=== PATIENT | male | born 1980 | race Caucasian/White ===

== ENCOUNTER 2025-03-06 15:29 | Outpatient (CLI) | payer BC, SELFPAY ==
--- NOTE | 2025-03-06 16:15 | USR_ITS ---
PROCEDURE INFORMATION: Exam: US Scrotum Exam date and time: 03/06/2025 3:40 PM Age: 44 years old Clinical indication: Scrotum pain; Additional info: Torsion, no pa required, call ref- 03/06/2025 [place]. TECHNIQUE: Imaging protocol: Real-time ultrasound of the scrotum and contents with color Doppler and image documentation. COMPARISON: No relevant prior studies available. FINDINGS: Limitations: Study is suboptimal due to body habitus Right testicle: Right testicle 3.2 x 1.3 x 2.1 cm. Color Doppler flow is seen in the parenchyma. Small right sided hydrocele. Left testicle: Left testicle 2.6 x 2 x 3.9 cm. Color Doppler flow is seen in the parenchyma. Small hydrocele with septation. Epididymides: Left epididymis measures 1 x 0.8 x 0.5 cm. Right epididymis is not well visualized. US/US scrotum 71062 IMPRESSION: 1. No testicular torsion or orchitis. 2. Bilateral hydroceles.
== END 2025-03-06 15:30 | disposition home or self-care (01) ==
LOC: RAD 15:33
PROVIDERS: PCP Nurse Practitioner Family; Visit Provider Nurse Practitioner Family
DX: N50.819 Testicular pain, unspecified (principal); N43.3 Hydrocele, unspecified
CPT/HCPCS: 76870